=== PATIENT | male | born 1955 | race Caucasian/White ===

== ENCOUNTER 2020-05-14 09:25 | Outpatient (CLI) | payer BC, SELFPAY ==
--- NOTE | 2020-05-14 09:30 | CT_ITS ---
WS: [id number] CTA ABDOMEN PELVIS TECHNIQUE: Contrast enhanced CTA of the abdominal aorta with coronal and sagittal reformatted images and additional MIP Images. CLINICAL INFORMATION: AAA COMPARISON: None. DLP: 952.[address] scans at [facility] use at least one of these dose optimization techniques: automat ed exposure control; mA and/or kV adjustment per patient size (includes targeted exams where dose is matched to clinical indication); or iterative reconstruction. FINDINGS: Infrarenal abdominal aortic aneurysm with peripheral mural thrombus. Infrarenal abdominal aortic aneu rysm measures 3.5 x 3.5 x 4.3 cm AP by transverse by craniocaudal. Diffuse fatty infiltration liver. A few small hepatic cysts. Portal vein and splenic vein are patent . Gallbladder is normal. Lung bases are well aerated. Small to moderate esophageal hiatal hernia. Adr enal glands are normal. Normal renal parenchymal enhancement. No hydronephrosis. Left renal cyst shamika uring 2.4 CM. Celiac and SMA origins are patent with mild aortic calcification. Moderate calcificatio n of both renal artery origins with no flow-limiting stenosis Diverticulosis. No evidence of acute diverticulitis. Scattered stool in the colon. No free fluid in t he pelvis. Enlarged heterogeneous prostate enhancement. Prostate measures 4.0 x 4.6 cm. Fat-containin g right inguinal hernia. Disc space narrowing L5-S1 with vacuum disc phenomenon. IMPRESSION 1. Infrarenal abdominal aortic aneurysm measuring 3.5 x 3.5 x 4.3 cm AP x transverse x craniocaudal 2. Moderate calcified atheromatous disease abdominal aorta. 3. Celiac and SMA origins are patent. 4. Small to moderate esophageal hiatal hernia. 5. Enlarged prostate. Recommend correlation PSA. 6. Incidental fat-containing inguinal hernia.
[2020-05-14 09:59] LABS: Blood Urea Nitrogen 14 mg/dL (8-23); Glomerular Filtration Rate 55.8 mL/min (90-130)
[2020-05-14] MEDS: iodixanol 320 mg/mL 100mL Btl IV (10:04)
== END 2020-05-14 09:26 | disposition home or self-care (01) ==
PROVIDERS: Family Provider Internal Medicine; PCP Internal Medicine; Visit Provider Thoracic Surgery (Cardiothoracic Vascular Surgery)
DX: I71.4 Abdominal aortic aneurysm, without rupture (principal); I70.0 Atherosclerosis of aorta; K44.9 Diaphragmatic hernia without obstruction or gangrene; N40.0 Benign prostatic hyperplasia without lower urinary tract symptoms; K40.90 Unilateral inguinal hernia, without obstruction or gangrene, not specified as recurrent
CPT/HCPCS: 74174; 82565; 84520; Q9967

== ENCOUNTER 2020-09-30 15:09 | Outpatient (CLI) | payer BC, SELFPAY ==
--- NOTE | 2020-09-30 15:29 | PFTS_ITS ---
Date of Study:09/30/20 Date of Dictation: MECHANICS: Forced vital capacity (FVC) is normal. Forced expiratory volume in one second (FEV1) is normal. FEV1/FVC is normal. FLOW VOLUME LOOP: Normal. LUNG VOLUMES: Total lung capacity (TLC) is normal. Residual volume (RV) is reduced. DIFFUSING CAPACITY FOR CARBON MONOXIDE: Normal. INTERPRETATION: Spirometry is normal. Lung volumes revealed mild reduction of residual volume. This could be a nonspecific finding or early interstitial lung disease. Gas exchange (DLCO) is normal. MTDD
== END 2020-09-30 15:10 | disposition home or self-care (01) ==
LOC: RT 15:10
PROVIDERS: PCP Internal Medicine; Visit Provider Internal Medicine
DX: R06.02 Shortness of breath (principal)
CPT/HCPCS: 87635; 94010; 94726; 94729

== ENCOUNTER 2020-10-10 08:56 | Outpatient (CLI) | payer BC, SELFPAY ==
--- NOTE | 2020-09-26 11:17 | PC.NURSE ---
cancel had to cancel test due to meds. he had taken amlodipine last night. i educated pt regarding protocol for test. pt verbalized understanding. nurse to call ginny. scheduling for reschedule of test.
--- NOTE | 2020-10-10 09:25 | ECG_ITS ---
[facility] Test Date: 2020-10-10 Pat Name: Francisco Ramírez Department: Room: Gender: Male [employer] Res[employer] Service Technician: Shanthi Albright : 1955 Requested By: Jama Bolom Order Number: [id number] Lupe MD: LEENA CHAVEZ Interpretive Statements NAME OF STUDY: EXERCISE SESTAMIBI STRESS TEST INDICATION: Chest Pain EXERCISE DATA: The patient was exercised by Hernán protocol. Baseline heart rate was 82 beats per minute. Baseline blood pressure was 142/88 millimeters of mercury. Target heart rate was 156 beats per minute. Maximum heart rate achieved was 144, which was 92 % of the target heart rate. Maximum blood pressure was 179/98 millimeters of mercury. Total exercise time was 3 minutes 32 seconds. Maximum METs achieved was 6.8, maximum VO2 was 23.8. The reason for ending the test was maximum effort achieved. The patient complained of shortness of breath during the stress test, which then resolved at the end of the test. ELECTROCARDIOGRAM: BASELINE: Sinus rhythm, left axis, left bundle branch block. EXERCISE: At the peak exercise level, no significant ST-T changes suggestive of ischemia noted. RECOVERY: During the recovery period, heart rate dropped appropriately. No significant ST-T changes in the recovery suggestive of ischemia noted. CONCLUSION: 1. Exercise capacity poor. 2. Heart rate response was tachycardic. 3. Blood pressure response was appropriate. 4. Symptoms not suggestive of ischemia. 5. Electrocardiogram portion of the stress test was not suggestive of ischemia. 6. Nuclear scan will be documented separately. Please note that due to underachievement segments and low exercise capacity specificity and sensitivity of EKG portion of stress test will be low. Electronically Signed On 10-13-2020 12:44:42 TAX EXPERT by LEENA CHAVEZ [id number]
--- NOTE | 2020-10-10 09:26 | NMCV_ITS ---
NM francesco perf SPECT r/s* [id number] Francisco Ramírez Age: 65 Gender: M : 1955 Exam Date: 10/10/2020 09:26 Ordering Phys: Jama Fernandez DO Technologist: PATRICK Mae Exam Location: [facility] Indications: CHEST PAIN STRESS TEST Please see separate stress test report in [employer] for full findings IMAGE PROTOCOL Rest/Stress 1 Exercise Day Radiopharmaceutical Dose (mCi) Administration Site Administered by Rest: Tc-99m 10.8 IV PATRICK Parada Sestamibi Stress:Tc-99m 32.3 IV PATRICK Parada Sestamibi Rest: 10-Oct-2020 60 Discovery 630 Stress: 10-Oct-2020 15 Discovery 630 Radiopharmaceutical was injected at 86 % maximum heart rate. Images obtained in supine and prone position. SPECT RESULTS Technical Quality: Raw Data Analysis: Normal Image Corrections: No attenuation or motion correction applied Summed Stress Score: 2 Summed Rest Score: 0 Summed Difference Score: 2 PERFUSION FINDINGS Small area of fixed perfusion defect noted in distal inferior wall on both rest and stress images suggestive of artifact in the absence of other parameters. FUNCTIONAL RESULTS (calculated via Gated SPECT) Stress Image LV EF (%): 81 Stress EDV (mL):75 TID: 0.68 Stress ESV (mL):14 Rest Image LV EF (%): 81 FUNCTIONAL FINDINGS: There is normal left ventricular systolic function. IMPRESSIONS Myocardial perfusion imaging is normal and low probability for obstructive coronary artery disease. EKG segment will be documented separately. Michael Watson MD (Electronically Signed) Final Date: 10 October 2020 20:24 S
[2020-10-10 09:27] VITALS: BMI 29.0
[2020-10-10 11:17] VITALS: BP 151/87; PULSE 100
== END 2020-10-10 08:57 | disposition home or self-care (01) ==
LOC: RAD 08:59 → CDL 09:03
PROVIDERS: PCP Internal Medicine; Visit Provider Internal Medicine
DX: R07.9 Chest pain, unspecified (principal)
CPT/HCPCS: 78452; 93017; A9500

== ENCOUNTER 2020-12-12 07:39 | Outpatient (CLI) | payer OTHER, SELFPAY ==
--- NOTE | 2020-12-12 08:00 | USCV_ITS ---
Francisco Ramírez Age: 65 Gender: M : 1955 Exam Date: 12/12/2020 07:54 Ordering Phys: Konrad Moore MD (Andy) ([email or web address]) Technologist: Jojo Davis Exam Location: [facility] [place] Indication: KNOWN AAA RECHECK HISTORY: Known AAA Diameter (cm) AP x Transverse x Length Velocity (cm/s) Waveform Prox Aorta: 2.61 x 2.86 x 69.40 Mid Aorta: 1.86 x 1.75 x 65.70 Distal Aorta: 3.40 x 3.80 x 6.36 37.70 Right Iliac Prox: 1.62 x 1.62 x 95.00 Left Iliac Prox: 1.47 x 1.75 x 71.90 Stent Prox Landing x x Aneurysmal Sac Max x x Lt Lat Sac Dim Rt Lat Sac Dim Stent Dist Landing x x Right Iliac Stent x x Left Iliac Stent x x Right Renal Art Left Renal Art FINDINGS: Comparison: none available. Ectatic abdominal aorta with evidence of atherosclerotic plaque noted. Mild aneurysmal dilatation measuring 3.8 cm maximum. CONCLUSIONS AAA, maximum diameter 3.[address] Radha Dos Santos DO (Electronically Signed) Final Date: 12 December 2020 08:54 S
== END 2020-12-12 07:40 | disposition home or self-care (01) ==
LOC: RAD 07:45
PROVIDERS: PCP Internal Medicine; Visit Provider Thoracic Surgery (Cardiothoracic Vascular Surgery)
DX: I71.4 Abdominal aortic aneurysm, without rupture (principal)
CPT/HCPCS: 93978

== ENCOUNTER 2021-12-31 13:52 | Outpatient (CLI) | payer MEDICARE, SELFPAY ==
--- NOTE | 2021-12-31 14:00 | CT_ITS ---
WS: [id number] CTA ABDOMEN PELVIS TECHNIQUE: Contrast enhanced CTA of the abdominal aorta and pelvis with coronal and sagittal reformat slava images and additional MIP Images. CLINICAL INFORMATION: I71.4 - Abdominal aortic aneurysm, without rupture COMPARISON: May 14, 2020 DLP: 942.[address] scans at [facility] use at least one of these dose optimization techniques: automated e xposure control; mA and/or kV adjustment per patient size (includes targeted exams where dose is matc hed to clinical indication); or iterative reconstruction. FINDINGS: Infrarenal abdominal aortic aneurysm with peripheral mural thrombus is again visualized. Today this m easures approximately 3.5 x 3.5 x 4.3 cm AP by transverse by craniocaudal unchanged compared to previ ous. Celiac and SMA are patent. Mild to moderate calcified stenosis at the SMA origin. Moderate esophageal hiatal hernia. Moderate calcification and stenosis at the renal artery origins which remain patent. Normal renal parenchymal enhancement. Slight bibasilar atelectasis. Normal liver. Normal gallbladder. Pancreas appears normal. Splenic granulomas. Adrenal glands are nor mal. No hydronephrosis in either kidney. LEFT renal cysts. No abdominal lymphadenopathy. Enlarged pro state measuring 4.7 CM. Indentation on the bladder. Sigmoid diverticulosis. No evidence of small larg e bowel obstruction. No abdominal or pelvic lymphadenopathy. Fat-containing RIGHT inguinal hernia. CT/CT angio abdomen pelvis [id number] IMPRESSION: 1. Infrarenal abdominal aortic aneurysm measuring 3.5 x 3.5 x 4.3 cm AP x quispe sverse x craniocaudal 2. Moderate calcified atheromatous disease abdominal aorta. 3. Celiac is patent. Mild to moderate stenosis at the SMA origin appears sligh tly progressed compared to previous. 4. Moderate esophageal hiatal hernia appears slightly progressed. 5. Enlarged prostate appears progressed with thickening of the seminal vesicle s. Recommend correlation PSA.
[2021-12-31] MEDS: iohexol 350 mg/mL 100 mL Btl IV (14:52)
[2021-12-31 15:06] LABS: Blood Urea Nitrogen 13 mg/dL (8-23); Glomerular Filtration Rate 67.2 mL/min (90-130)
== END 2021-12-31 13:53 | disposition home or self-care (01) ==
LOC: RAD 13:54
PROVIDERS: PCP Internal Medicine; Visit Provider Thoracic Surgery (Cardiothoracic Vascular Surgery)
DX: I71.4 Abdominal aortic aneurysm, without rupture (principal); N40.0 Benign prostatic hyperplasia without lower urinary tract symptoms; K44.9 Diaphragmatic hernia without obstruction or gangrene
CPT/HCPCS: 74174; 82565; 84520

== ENCOUNTER → 2022-01-15 09:22 | Outpatient (BNVA) | payer MEDICARE, SELFPAY | PROVIDERS: PCP Internal Medicine; Visit Provider Thoracic Surgery (Cardiothoracic Vascular Surgery) | DX: I71.4 Abdominal aortic aneurysm, without rupture (principal); Z87.891 Personal history of nicotine dependence | CPT/HCPCS: 99212 ==

== ENCOUNTER 2022-12-22 07:20 | Outpatient (CLI) | payer MEDICARE, SELFPAY ==
--- NOTE | 2022-12-22 07:45 | USCV_ITS ---
Darrell Francisco Age: 67 Gender: M : 1955 Exam Date: 12/22/2022 07:44 Ordering Phys: Konrad Moore MD (Andy) ([email or web address]) Technologist: Jojo Davis Exam Location: [facility] [place] Indication: KNOWN AAA RECHECK HISTORY: Known AAA Diameter (cm) AP x Transverse x Length Velocity (cm/s) Waveform Prox Aorta: 1.56 x 2.46 x 81.80 Mid Aorta: 1.79 x 2.23 x 72.10 Distal Aorta: 3.67 x 3.72 x 6.10 37.95 Right Iliac Prox: 1.37 x 1.35 x 81.00 Left Iliac Prox: 1.53 x 1.55 x 71.10 Stent Prox Landing x x Aneurysmal Sac Max x x Lt Lat Sac Dim Rt Lat Sac Dim Stent Dist Landing x x Right Iliac Stent x x Left Iliac Stent x x Right Renal Art Left Renal Art FINDINGS: Comparison:. 12/12/20. A fusiform abdominal aortic aneurysm is noted with a maximal diameter of 3.7 cm. Assymetric thrombus is noted in the aneurysm. No evidence of periaortic fluid is detected. There is evidence of atherosclerotic plaque no significan stenosis in the right common iliac artery. There is evidence of atherosclerotic plaque no significan stenosis in the left common iliac artery. CONCLUSIONS No change seen from prior study. A fusiform abdominal aortic aneurysm is noted with a maximal diameter of 3.[address] Radha Dos Santos DO (Electronically Signed) Final Date: 22 December 2022 09:42 S
== END 2022-12-22 07:21 | disposition home or self-care (01) ==
PROVIDERS: PCP Internal Medicine; Visit Provider Thoracic Surgery (Cardiothoracic Vascular Surgery)
DX: I71.40 Abdominal aortic aneurysm, without rupture, unspecified (principal)
CPT/HCPCS: 93978

== ENCOUNTER → 2023-01-04 14:12 | Outpatient (BNVA) | payer MEDICARE, SELFPAY | PROVIDERS: PCP Internal Medicine; Visit Provider Thoracic Surgery (Cardiothoracic Vascular Surgery) | DX: I71.40 Abdominal aortic aneurysm, without rupture, unspecified (principal); Z87.891 Personal history of nicotine dependence | CPT/HCPCS: 99213 ==

== ENCOUNTER 2024-01-05 07:00 | Outpatient (CLI) | payer MEDICARE, SELFPAY ==
--- NOTE | 2024-01-05 07:15 | USCV_ITS ---
Darrell Francisco Age: 68 Gender: M : 1955 Exam Date: 01/05/2024 07:08 Ordering Phys: Konrad Moore MD (Andy) ([email or web address]) Technologist: ELADIA Exam Location: [facility] [place] Indication: KNOWN AAA HISTORY: Abdominal aortic aneurysm. Diameter (cm) AP x Transverse x Length Velocity (cm/s) Waveform Prox Aorta: 2.30 x 2.70 x 83.80 Triphasic Mid Aorta: 1.70 x 2.00 x 78.30 Triphasic Distal Aorta: 3.40 x 3.70 x 6.10 54.30 Triphasic Right Iliac Prox: 1.20 x 1.22 x 124.00 Triphasic Left Iliac Prox: 1.30 x 1.10 x 188.30 Biphasic Stent Prox Landing x x Aneurysmal Sac Max x x Lt Lat Sac Dim Rt Lat Sac Dim Stent Dist Landing x x Right Iliac Stent x x Left Iliac Stent x x Right Renal Art Left Renal Art FINDINGS: Comparison:. 12/22/22 A fusiform abdominal aortic aneurysm is noted with a maximal diameter of 3.7 cm. No evidence of periaortic fluid is detected. The findingthere is evidence of atherosclerotic plaque no significan stenosis in the right common iliac artery. There is evidence of atherosclerotic plaque no significan stenosis in the left common iliac artery. s are suspicious for rupture of the abdominal aortic aneurysm. CONCLUSIONS A fusiform abdominal aortic aneurysm is noted with a maximal diameter of 3.7 cm. Stable since the prior exam. Dr. Radha Dos Santos DO (Electronically Signed) Final Date: 05 January 2024 09:39 S
== END 2024-01-05 07:01 | disposition home or self-care (01) ==
LOC: RAD 07:00
PROVIDERS: PCP Internal Medicine; Visit Provider Thoracic Surgery (Cardiothoracic Vascular Surgery)
DX: I71.40 Abdominal aortic aneurysm, without rupture, unspecified (principal)
CPT/HCPCS: 93978

== ENCOUNTER → 2024-03-05 08:55 | Outpatient (BNVA) | payer MEDICARE, SELFPAY | PROVIDERS: PCP Internal Medicine; Visit Provider Thoracic Surgery (Cardiothoracic Vascular Surgery) | DX: I71.43 Infrarenal abdominal aortic aneurysm, without rupture (principal) | CPT/HCPCS: 99213 ==

== ENCOUNTER 2024-05-10 13:28 | Emergency (ER) | payer MEDICARE, SELFPAY ==
[2024-05-10 13:41] VITALS: BP 112/75; PULSE 110; RESP 15; TEMP 36.4; O2SAT 98
[2024-05-10 15:09] LABS: Basophils % 0.2 %; Lymphocytes # 0.9 10^3/uL (0.8-4.8); Lymphocytes % 6.3 %; Mean Corpuscular HGB Conc 32.9 g/dL (30-55); Mean Corpuscular Hemoglobin 30.1 pg (27-33); Mean Corpuscular Volume 91.5 fl (82-101); Mean Platelet Volume 10.6 fL (7.4-10.4); Monocytes # 0.6 10^3/uL (0.2-0.9); Neutrophils # 12.16 10^3/uL (1.8-7.7); Neutrophils % 89.1 %; Nucleated Red Blood Cells % 0 %; Platelet Count 388 10^3/cmm (157-399); Red Blood Count 4.59 10^6/uL (3.85-5.65); Red Cell Distribution Width 14.9 % (12.1-15.1); White Blood Count 13.65 10^3/uL (3.29-11.43)
--- NOTE | 2024-05-10 15:19 | W.ED.ABDPA2 ---
HPI - Abdominal Pain General: Chief Complaint: Abdominal Pain Stated Complaint: Urgent care sent. possible hernia Time Seen by Provider: 05/10/24 13:49 Source: patient Mode of arrival: ambulatory Limitations: no limitations History of Present Illness: 68-year-old male states he is got a right inguinal hernia it has been causing him pain he went to the clinic they were unable to reduce and sent him here. States pain sharp in nature rates today 6 out of 10 denies any vomiting. Associated Symptoms: Denies chills, diarrhea, fever(s), nausea and vomiting Review of Systems Const: Denies: fever(s), chills, body aches or change in appetite ENMT: Denies: throat pain or dental pain Card: Denies: chest pain Resp: Denies: dyspnea GI: Reports: abdominal pain; Denies: nausea, vomiting or diarrhea Musc: Denies: neck pain or back pain Skin/Breast: Denies: rash Neuro: Denies: headache(s) [facility] PFSH: Medical History (Updated 05/10/24 @ 17:30 by Marina Truong MD) AAA (abdominal aortic aneurysm) Family History Father Cancer Social History Smoking and tobacco/nicotine status: former use of tobacco/nicotine Alcohol intake: current Substance/Drug Use: never Physical Exam Const: COMMON NORMALS: no acute distress, patient oriented x3 and healthy appearing HENMT: COMMON NORMALS: normocephalic and atraumatic HEAD & SCALP: normocephalic and atraumatic Neck/C-Spine: COMMON NORMALS: full ROM and supple Chest: COMMONS NORMALS: normal inspection of the chest Resp: COMMON NORMALS: normal respiratory effort Cardio: COMMON NORMALS: regular rate, regular rhythm and No murmurs present (Cardio) RATE: regular rate RHYTHM: regular rhythm GI: COMMON NORMALS: Soft to palpation PALPATION: Yes Soft to palpation OTHER: Right inguinal hernia palpated tender to touch Extremity: COMMON NORMALS: normal to inspection and full ROM Neuro: COMMON NORMALS: patient oriented x3, moves all extremities and no focal motor deficits Psych: COMMON NORMALS: mental status grossly normal, Normal thought process present and cooperative THOUGHT PROCESS: Normal thought process present Skin: COMMON NORMALS: no rashes or lesions noted and no wounds GENERAL SKIN EXAM: no rashes or lesions noted Course Vital Signs: Vital signs: Vital Signs Temperature 97.6 F 05/10/24 13:41 Pulse Rate 78 05/10/24 15:57 Respiratory Rate 16 05/10/24 15:57 Blood Pressure 130/93 05/10/24 15:57 Pulse Oximetry 94 05/10/24 15:57 Oxygen Delivery Me thod Room Air 05/10/24 15:57 MDM - Abdominal Pain Medical Decision Making Patient presents with right groin pain from a inguinal hernia. CT here showed no loops of bowel I did call the V rad radiologist and went through the CT with him and he stated that he only saw fat through the hernia no bowel he has no signs of strangulation his pain has improved here he follows with Dr. Avalos informed him he needs to follow-up in 4 to 7 days return if worsening he understands agrees to plan Medical Records I reviewed the patient's medical records. Lab Data I reviewed the patient's lab results. 05/10/24 14:51 05/10/24 14:51 Labs/Radiology: Radiology Impressions Abdomen/Pelvis CT 05/10/24 15:50 IMPRESSION: 1. No clear-cut acute abdominopelvic abnormality. 2. Further mild enlargement of fusiform abdominal aortic aneurysm , 4.1 cm compared to 3.7 cm on 12/31/2021. Follow-up recommended. 3. Moderate prostatomegaly has further mildly increased. Mild diffuse bladder wall thickening. 4. Extensive atherosclerotic calcification of the abdominal aorta . Moderate- high-grade ostial stenosis of the SMA which is mildly increased and high-grade calcific involvement of the renal artery ostia. COMMENTS: Consistent with the [employer]'s Incidental Findings Committee white paper (J Am Atiya Radiol 2018): Any incidental renal lesion less than 1 cm or classified as too small to characterize, or any incidental cystic renal lesion characterized as simple-appearing, is likely benign. No follow-up imaging is recommended for these lesions per consensus recommendations based on imaging criteria. Laboratory Results WBC 13.65 10^3/uL (3.29-11.43) H 05/10/24 14:51 RBC 4.59 10^6/uL (3.85-5.65) 05/10/24 14:51 Hgb 13.80 g/dL (11.27-16.99) 05/10/24 14:51 Hct 42.0 % (37-53) 05/10/24 14:51 MCV 91.5 fl (82-101) 05/10/24 14:51 MCH 30.1 pg (27-33) 05/10/24 14:51 MCHC 32.9 g/dL (30-55) 05/10/24 14:51 RDW 14.9 % (12.1-15.1) 05/10/24 14:51 Plt Count 388 10^3/cmm (157-399) 05/10/24 14:51 MPV 10.6 fL (7.4-10.4) H 05/10/24 14:51 Neut % (Auto) 89.1 % 05/10/24 14:51 Lymph % (Auto) 6.3 % 05/10/24 14:51 Bladen % (Auto) 4.0 % 05/10/24 14:51 Eos % (Auto) 0.0 % 05/10/24 14:51 Baso % (Auto) 0.2 % 05/10/24 14:51 Neut # (Auto) 12.16 10^3/uL (1.8-7.7) H 05/10/24 14:51 Lymph # (Auto) 0.9 10^3/uL (0.8-4.8) 05/10/24 14:51 Bladen # (Auto) 0.6 10^3/uL (0.2-0.9) 05/10/24 14:51 Eos # (Auto) 0.0 10^3/uL (0.0-0.8) 05/10/24 14:51 Baso # (Auto) 0.0 10^3/uL (0.0-0.1) 05/10/24 14:51 Nucleated RBC % (auto) 0 % 05/10/24 14:51 Nucleated RBCs # 0.0 /100WBC 05/10/24 14:51 Sodium 140 mmol/L (136-145) 05/10/24 14:51 Potassium 4.7 mmol/L (3.5-5.1) 05/10/24 14:51 Chloride 101 mmol/L (98-107) 05/10/24 14:51 Carbon Dioxide 25 mmol/L (22-29) 05/10/24 14:51 Anion Gap 18.7 (5-19) 05/10/24 14:51 BUN 16 mg/dL (8-23) 05/10/24 14:51 Creatinine 1.0 mg/dL (0.7-1.2) 05/10/24 14:51 GFR Calculation 74.5 mL/min (90-130) L 05/10/24 14:51 Glucose 124 mg/dL (65-115) H 05/10/24 14:51 Calculated Osmolality 293 mOsm/kg (285-295) 05/10/24 14:51 Calcium 9.9 mg/dL (8.5-10.5) 05/10/24 14:51 Total Bilirubin 0.5 mg/dL (0.15-1.2) 05/10/24 14:51 AST 20 U/L (0-40) 05/10/24 14:51 ALT 24 U/L (0-41) 05/10/24 14:51 Alkaline Phosphatase 62 U/L (40-130) 05/10/24 14:51 Total Protein 8.3 g/dL (6.6-8.7) 05/10/24 14:51 Albumin 4.0 g/dL (3.5-5.2) 05/10/24 14:51 Globulin 4.3 g/dL (1.3-4.6) 05/10/24 14:51 Lipase 23 U/L (13-60) 05/10/24 14:51 All radiology interpretation(s) finalized by discharge Discharge Plan Discharge Patient Disposition: Home Clinical Impression: Hernia, inguinal, right Condition: Stable Prescriptions: New hydrocodone-acetaminophen 5-325 mg tablet 1 tab PO Q6H PRN (Reason: pain) Qty: 14 0RF ondansetron 4 mg tablet,disintegrating 4 mg PO Q6H PRN (Reason: nausea and vomiting) Qty: 14 0RF No Action lisinopril 20 mg tablet 20 mg PO DAILY amlodipine 10 mg tablet 10 mg PO DAILY atorvastatin 40 mg tablet 40 mg PO DAILY Discharge Orders: Discharge ED (Routine); Ordered 05/10/24 Ordered By: Marina Truong Referrals: Jama Fernandez DO [Primary Care Provider] - Discharge Diet: Advance as tolerated Discharge Activity: Resume usual activity Patient Instructions: Inguinal Hernia (ED), Opioid Safety Coding Level of Care Code ED Dinkey Locomotive Operator for Brittni Champagne
[2024-05-10 15:27] LABS: Alanine Aminotransferase 24 U/L (0-41); Alkaline Phosphatase 62 U/L (40-130); Chloride 101 mmol/L (98-107); Potassium 4.7 mmol/L (3.5-5.1); Sodium 140 mmol/L (136-145)
[2024-05-10 15:40] LABS: Anion Gap 18.7 (5-19); Aspartate Amino Transferase 20 U/L (0-40); Blood Urea Nitrogen 16 mg/dL (8-23); Calcium 9.9 mg/dL (8.5-10.5); Carbon Dioxide 25 mmol/L (22-29); Creatinine Clr Calc Pharmacy 64.5657; Globulin 4.3 g/dL (1.3-4.6); Glomerular Filtration Rate 74.5 mL/min (90-130); Glucose 124 mg/dL (65-115); Lipase 23 U/L (13-60); Osmolality Calculated 293 mOsm/kg (285-295); Total Bilirubin 0.5 mg/dL (0.15-1.2); Total Protein 8.3 g/dL (6.6-8.7)
[2024-05-10] MEDS: HYDROmorphone 1 mg/mL INJ 1 mL 0.5 MG IVP (15:43)
[2024-05-10] MEDS: LORazepam 2 mg/mL INJ 1 mL 1 MG IVP (15:43)
--- NOTE | 2024-05-10 15:50 | CTR_ITS ---
PROCEDURE INFORMATION: Exam: CT Abdomen And Pelvis With Contrast Exam date and time: 05/10/2024 4:32 PM Age: 68 years old Clinical indication: Abdominal pain; Localized; Right lower quadrant (rlq); Prior surgery; Surgery date: 6+ months; Surgery type: Hernia surgery x2; Additional info: Abd pain TECHNIQUE: Imaging protocol: Computed tomography of the abdomen and pelvis with contrast. Radiation optimization: All CT scans at this facility use at least one of these dose optimization techniques: automated exposure control; mA and/or kV adjustment per patient size (includes targeted exams where dose is matched to clinical indication); or iterative reconstruction. Contrast material: OMNI 350; Contrast volume: 81 ml; Contrast route: INTRAVENOUS (IV); COMPARISON: CT angio abdomen pelvis [id number] 12/31/2021 2:34 PM RADIATION DOSE METRICS: Total DLP (mGy-cm): 405.6 FINDINGS: Lungs: Mild bibasilar cylindrical bronchiectasis and nonspecific reticular interstitial changes are stable from 12/31/2021. Small calcified right lower lobe granuloma. Heart: Extensive mitral annular calcification. Liver: A few hypodense liver lesions up to 1 cm not significantly changed, likely due to cysts. Gallbladder and biliary ducts: Normal. No calcified stones. No ductal dilation. Pancreas: Normal. No ductal dilation. Spleen: Multiple punctate calcified splenic granulomas again noted. Adrenal glands: Normal. No mass. Kidneys and ureters: Subcentimeter hypodensity in the lower pole right kidney (series 3, image 36) is not further characterized but likely due to a cyst. Additional small stable left renal cysts up to 2.3 cm. Stomach and bowel: Scattered sigmoid diverticuli without acute inflammatory change. Moderate amount of colonic stool. Previous hiatal hernia is no longer present. Appendix: The appendix is nonenlarged. Intraperitoneal space: Unremarkable. No free air. No significant fluid collection. Vasculature: Moderately extensive atherosclerotic plaque including involvement of the ostia of the renal arteries, SMA and to a lesser extent the celiac trunk again demonstrated. Fusiform abdominal aortic aneurysm with diffuse calcification and moderate wall thrombus measures up to 4.1 cm in diameter, slightly increased from 3.7 cm . Extensive iliac atherosclerotic calcification without high-grade stenosis. Lymph nodes: Unremarkable. No enlarged lymph nodes. Urinary bladder: Mild diffuse urinary bladder wall thickening. Reproductive: Moderate prostatic enlargement up to 6 x 5.1 cm has increased. Bones/joints: Moderate multilevel thoracolumbar spondylosis. Mild rotary scoliosis. Soft tissues: Small residual right inguinal fatty hernia, moderately decreased in size from the prior study. CT/CT abdomen pelvis w con* [id number] IMPRESSION: 1. No clear-cut acute abdominopelvic abnormality. 2. Further mild enlargement of fusiform abdominal aortic aneurysm , 4.1 cm compared to 3.7 cm on 12/31/2021. Follow-up recommended. 3. Moderate prostatomegaly has further mildly increased. Mild diffuse bladder wall thickening. 4. Extensive atherosclerotic calcification of the abdominal aorta . Moderate- high-grade ostial stenosis of the SMA which is mildly increased and high-grade calcific involvement of the renal artery ostia. COMMENTS: Consistent with the [employer]'s Incidental Findings Committee white paper (J Am Atiya Radiol 2018): Any incidental renal lesion less than 1 cm or classified as too small to characterize, or any incidental cystic renal lesion characterized as simple-appearing, is likely benign. No follow-up imaging is recommended for these lesions per consensus recommendations based on imaging criteria.
[2024-05-10 15:57] VITALS: BP 130/93; PULSE 78; RESP 16; O2SAT 94
[2024-05-10] MEDS: iohexol 350 mg/mL 500 mL Btl (per mL) IV (16:37)
[2024-05-10 17:31] VITALS: BP 123/82; PULSE 90; RESP 16; O2SAT 94
[2024-05-10 17:49] VITALS: BP 123/82; PULSE 90; RESP 16; TEMP 36.4; O2SAT 94
== END 2024-05-10 17:50 | disposition home or self-care (01) ==
PROVIDERS: Emergency Provider Emergency Medicine; PCP Internal Medicine
DX: K40.90 Unilateral inguinal hernia, without obstruction or gangrene, not specified as recurrent (principal); Z87.891 Personal history of nicotine dependence
CPT/HCPCS: 36415; 74177; 80053; 83690; 85025; 96374; 96375; 99285; J1170; J2060; Q9967

== ENCOUNTER → 2024-05-23 12:56 | Outpatient (BNVA) | payer MEDICARE, SELFPAY | PROVIDERS: PCP Internal Medicine; Visit Provider Specialist | DX: R20.0 Anesthesia of skin (principal); R29.898 Other symptoms and signs involving the musculoskeletal system; M54.2 Cervicalgia; G56.03 Carpal tunnel syndrome, bilateral upper limbs; G56.23 Lesion of ulnar nerve, bilateral upper limbs | CPT/HCPCS: 95910; 95911 ==

== ENCOUNTER → 2024-06-20 08:28 | Outpatient (BNVA) | payer MEDICARE, SELFPAY | PROVIDERS: PCP Internal Medicine; Visit Provider Nurse Practitioner | DX: G56.03 Carpal tunnel syndrome, bilateral upper limbs (principal); G56.23 Lesion of ulnar nerve, bilateral upper limbs | CPT/HCPCS: 99204 ==

== ENCOUNTER 2025-08-16 14:51 | Outpatient (CLI) | payer MEDICARE, SELFPAY ==
--- NOTE | 2025-08-16 14:58 | USCV_ITS ---
Francisco Ramírez Age: 70 Gender: M : 1955 Exam Date: 08/16/2025 15:12 Ordering Phys: Shashank Clark MD Technologist: CRISTINA [place] [facility] [place] Indication: EEjection Murmur BP: 113 / 76 HR: 77 Rhythm: Sinus Technical Quality: Adequate MEASUREMENTS (Male / Female) Normal Values 2D ECHO LV Diastolic Diameter PLAX 6.0 cm 4.2 - 5.9 / 3.9 - 5.3 cm IVS Diastolic Thickness 0.8 cm 0.6 - 1.0 / 0.6 - 0.9 cm IVS Systolic Thickness 1.1 cm LVPW Diastolic Thickness 1.0 cm 0.6 - 1.0 / 0.6 - 0.9 cm LVPW Systolic Thickness 1.4 cm LVOT Diameter 2.0 cm LV Ejection Fraction 2D Teich 64.3 % LV Ejection Fraction MOD 4C 58.8 % LV Ejection Fraction MOD 2C 56.9 % LV Ejection Fraction 2C AL 62.6 % LA Diameter 3.4 cm RA Systolic Volume 4C AL 32.3 ml RA Systolic Volume 4C MOD 30.0 ml LA Sys Volume AL 30.5 cm cubed LA Sys Volume Index AL 16.8 cm cubed/m squared Aorta at Sinotubular Diameter 2.9 cm IVC Diameter 1.6 cm M-MODE LA Ao Ratio MM 1.5 AV Cusp Separation MM 0.6 cm DOPPLER AV Peak Velocity 234.5 cm/s LVOT Peak Velocity 77.0 cm/s AV Area Cont Eq vti 0.9 cm squared AV Area Cont Eq pk 1.0 cm squared MV Peak Velocity 114.0 cm/s MV Area PHT 10.1 cm squared Mitral E to A Ratio 0.5 TV Peak Velocity 199.0 cm/s TR Peak Velocity 307.0 cm/s TR Peak Gradient 37.7 mmHg TV Peak E Velocity 85.0 cm/s PV Peak Velocity 130.0 cm/s FINDINGS Left Ventricle Normal left ventricular size, systolic function and wall thickness, with no regional wall motion abnormalities. Left ventricular ejection fraction is estimated at 60 %. Grade I/IV diastolic dysfunction (abnormal relaxation filling pattern), normal to mildly elevated filling pressures. Right Ventricle Normal right ventricular size and systolic function. Right Atrium Normal right atrial size. Left Atrium Normal left atrial size. IA Septum Normal appearance of the interatrial septum. Mitral Valve Moderately thickened mitral valve. Severe mitral annular calcification. No mitral valve stenosis. Mild mitral valve regurgitation. Aortic Valve Severe aortic valve calcification. Moderate to severe aortic valve stenosis, mean gradient 11.3 mmHg, EZIO 0.93 cm squared. Trace aortic valve regurgitation. Tricuspid Valve Pulmonic Valve Normal pulmonic valve structure. No pulmonic valve stenosis or regurgitation. Pericardium No pericardial effusion. Aorta Normal diameter of the aortic root and ascending thoracic aorta. IVC Normal IVC diameter. CONCLUSIONS Normal left ventricular size, systolic function and wall thickness, with no regional wall motion abnormalities. Left ventricular ejection fraction is estimated at 60 %. Grade I/IV diastolic dysfunction (abnormal relaxation filling pattern), normal to mildly elevated filling pressures. Severe aortic valve calcification. Moderate to severe aortic valve stenosis, mean gradient 11.3 mmHg, EZIO 0.93 cm squared. Trace aortic valve regurgitation. Trace tricuspid valve regurgitation. There is no pericardial effusion. Right atrial pressure is around 5 mm of mercury. Michael Watson MD (Electronically Signed) Final Date: 25 August 2025 19:17 S
== END 2025-08-16 14:52 | disposition home or self-care (01) ==
PROVIDERS: PCP Internal Medicine; Visit Provider Family Medicine
DX: R01.1 Cardiac murmur, unspecified (principal); R93.1 Abnormal findings on diagnostic imaging of heart and coronary circulation; I34.81 Nonrheumatic mitral (valve) annulus calcification; I34.0 Nonrheumatic mitral (valve) insufficiency; I35.8 Other nonrheumatic aortic valve disorders; I35.0 Nonrheumatic aortic (valve) stenosis
CPT/HCPCS: 93306